=== PATIENT | male | born 1975 | race African-American/Black ===

== ENCOUNTER 2017-08-21 11:34 | Day surgery (SDC) | payer BC, OTHER ==
[2017-08-17 15:39] VITALS: BMI 31.3
[2017-08-21] MEDS ORDERED: MIDAZOLAM HCL 2 MG/2 ML SINGLE DOSE VIAL ONE ×2 (12:48)
--- NOTE | 2017-08-21 13:15 | OP ---
Operative Note - Note: Operative Date: 08/21/17 Pre-Operative Diagnosis: Left kidney stone Operation: Left ESWL Findings: 10 mm lover pole Left renal stone Surgeon: Mark Hare Anesthesia: Fractional Operative Report Dictated: Yes
[2017-08-21] MEDS ORDERED: oxyCODONE HCL 5 MG TABLET PO PRN (13:32)
[2017-08-21] MEDS ORDERED: PROMETHAZINE HCL 25 MG/1 ML VIAL IVPUSH PRN (13:32)
[2017-08-21] MEDS ORDERED: ONDANSETRON 4 MG/2 ML VIAL IVPUSH PRN (13:32)
[2017-08-21] MEDS ORDERED: LACTATED RINGERS SOLUTION 1,000 ML IV SCH (13:45)
[2017-08-21 14:34] VITALS: TEMP 97.8
[2017-08-21 15:14] VITALS: BP 137/80; PULSE 66
--- NOTE | 2017-08-21 21:23 | OP ---
DATE OF OPERATION: 08/21/2017 PREOPERATIVE DIAGNOSIS: Left renal stone. POSTOPERATIVE DIAGNOSIS: Left renal stone. PROCEDURE: Left extracorporeal shock wave lithotripsy. ATTENDING: Tomasz Hernández MD ANESTHESIA: Fractional. DESCRIPTION OF OPERATION: The patient was brought in the operating room, placed in supine position on the operating room table. Ultrasonography and fluoroscopy were performed. A 1-cm left lower pole renal stone was identified. At this point, fractional anesthesia and preoperative antibiotics were administered. Extracorporeal shock wave lithotripsy was then performed; 2500 impulses at 20 joules of power were administered to the stone with excellent fragmentation of the stone noted. The patient tolerated the procedure very well with no complications noted. The disposition of the patient was to the recovery room. TOMASZ HERNÁNDEZ M.D. [id number]
== END 2017-08-21 15:30 | disposition home or self-care (01) ==
LOC: JASU-SURG 11:34
PROVIDERS: ATTEND Urology
PROC: 0TF4XZZ Fragmentation in Left Kidney Pelvis, External Approach (ICD-10-PCS; principal; 2017-08-21 13:15)
DX: N20.0 Calculus of kidney (principal)
CPT/HCPCS: 94760

== ENCOUNTER 2018-02-05 08:21 | Day surgery (SDC) | payer BC, OTHER ==
[2018-02-02 15:35] VITALS: BMI 31.4
[2018-02-05 09:01] VITALS: TEMP 97.8
[2018-02-05] MEDS ORDERED: MIDAZOLAM HCL 2 MG/2 ML SINGLE DOSE VIAL ONE (11:04)
[2018-02-05] MEDS ORDERED: LIDOCAINE HCL/PF 2% SDV 5ML VIAL ONE (11:06)
[2018-02-05] MEDS ORDERED: PROPOFOL 20 ML ONE ×2 (11:06)
[2018-02-05] MEDS ORDERED: ONDANSETRON 4 MG/2 ML VIAL IVPUSH PRN (12:02)
[2018-02-05] MEDS ORDERED: oxyCODONE HCL 5 MG TABLET PO PRN ×2 (12:02)
[2018-02-05] MEDS ORDERED: LACTATED RINGERS SOLUTION 1,000 ML IV SCH (12:15)
[2018-02-05 13:35] VITALS: BP 125/78; PULSE 50
--- NOTE | 2018-02-05 15:33 | OP ---
Operative Note - Note: Operative Date: 02/05/18 Pre-Operative Diagnosis: left ureteral stone and acute renal insufficiency Operation: cystoscopy/left retrograde pyelogram Findings: no hydronephrosis or ureteral obstruction Post-Operative Diagnosis: Same as Pre-op Surgeon: Mark Hare Anesthesia: General
--- NOTE | 2018-02-05 22:40 | OP ---
DATE OF OPERATION: 02/05/2018 PREOPERATIVE DIAGNOSIS: Left ureteral stone and acute renal insufficiency. POSTOPERATIVE DIAGNOSIS: Passed left ureteral stone. ATTENDING: Mark Silva MD ANESTHESIA: General. DESCRIPTION OF OPERATION: The patient has a history of acute renal insufficiency with a history of urolithiasis and obstructing left ureteral stone. The patient has not passed the stone to the best of his knowledge and continues with intermittent left flank pain. The patient is brought in the operating room, placed in supine position on the operating room table. The patient is given anesthesia and placed in the dorsal lithotomy position. Preoperative antibiotics are also administered. At this point, the patient is prepped and draped in the usual sterile manner. Cystoscopy is performed, and no evidence of stones within the bladder is noted. A retrograde pyelogram shows no evidence of filling defects within the ureter and no evidence of hydronephrosis. Excellent drainage of the kidney is seen. The procedure is then completed with the cystoscope removed. No further intervention is necessary. The patient tolerated the procedure very well, and the disposition of the patient is to the recovery room. Lele [id number]
== END 2018-02-05 13:36 | disposition home or self-care (01) ==
LOC: JASU-SURG 08:21
PROVIDERS: ATTEND Urology
PROC: BT1FYZZ Fluoroscopy of Left Kidney, Ureter and Bladder using Other Contrast (ICD-10-PCS; principal; 2018-02-05 10:00)
DX: N20.1 Calculus of ureter (principal); N28.9 Disorder of kidney and ureter, unspecified
CPT/HCPCS: 94760

== ENCOUNTER 2018-03-19 17:18 | Day surgery (SDC) | payer BC, OTHER ==
[2018-03-16 16:53] VITALS: BMI 31.3
[2018-03-19] MEDS ORDERED: MIDAZOLAM HCL 2 MG/2 ML SINGLE DOSE VIAL ONE (18:32)
[2018-03-19] MEDS ORDERED: KETOROLAC TROMETHAMINE 30 MG/1 ML VIAL ONE (18:35)
--- NOTE | 2018-03-19 18:57 | OP ---
Operative Note - Note: Operative Date: 03/19/18 Pre-Operative Diagnosis: Left renal stone Operation: Left ESWL Findings: 12 mm lower pole Left renal stone Post-Operative Diagnosis: Same as Pre-op Surgeon: Mark Hare Anesthesia: Fractional Estimated Blood Loss (mls): 0
[2018-03-19 19:54] VITALS: BP 122/67; PULSE 68; TEMP 98.1
--- NOTE | 2018-05-20 17:06 | OP ---
DATE OF OPERATION: 03/19/2018 PREOPERATIVE DIAGNOSIS: Left renal stone. POSTOPERATIVE DIAGNOSIS: Left renal stone. PROCEDURE: Left extracorporeal shockwave lithotripsy. ATTENDING: Tomasz Hernández MD ANESTHESIA: Fractional. OPERATION: The patient was brought to the operating room and placed in the supine position on the operating room table. Ultrasonography and fluoroscopy were performed. A 12-mm left lower pole stone was identified. Anesthesia and preoperative antibiotics were then administered. Shockwave lithotripsy was performed. Excellent fragmentation of the stone was noted under real time ultrasonography and fluoroscopy. DISPOSITION: The patient was sent to the recovery room. TOMASZ HERNÁNDEZ M.D. [id number]
== END 2018-03-19 20:05 | disposition home or self-care (01) ==
LOC: JASU-SURG 17:18
PROVIDERS: ATTEND Urology
PROC: 0TF3XZZ Fragmentation in Right Kidney Pelvis, External Approach (ICD-10-PCS; principal; 2018-03-19 19:15)
DX: N20.0 Calculus of kidney (principal)